=== PATIENT | male | born 1975 | race Caucasian/White ===

== ENCOUNTER 2016-12-04 05:01 | Emergency (ER) | payer SELFPAY ==
[2016-12-04] MEDS ORDERED: Ibuprofen 800 MG TAB ONE (05:33)
== END 2016-12-04 05:41 | disposition home or self-care (01) ==
LOC: BURERS 05:01
DX: M26.601 Right temporomandibular joint disorder, unspecified (principal); E10.9 Type 1 diabetes mellitus without complications; F17.210 Nicotine dependence, cigarettes, uncomplicated; Z79.899 Other long term (current) drug therapy
CPT/HCPCS: 99283

== ENCOUNTER 2020-07-30 14:25 | Emergency (ER) | payer SELFPAY ==
[2020-07-30 15:26] LABS: Mean Corpuscular Hemoglobin 29.4 pg (27.0-31.0); Mean Platelet Volume 9.2 fL (7.4-10.4); Platelet Count 265 thou/uL (130-400); RBC Distribution Width 12.7 % (11.5-14.5); White Blood Cell (WBC) Count 11.8 thou/uL (4.8-10.8)
[2020-07-30 15:41] LABS: ALT (SGPT) 162 U/L (8-55); AST (SGOT) 120 U/L (5-34); Albumin 4.4 g/dL (3.5-5.0); Alkaline Phosphatase 211 U/L (40-110); Anion Gap 18 mmol/L (10-20); BUN (Urea Nitrogen) 11 mg/dL (8.9-20.6); Bilirubin, Total 0.7 mg/dL (0.2-1.2); Calc. Creatinine Clearance 0 mL/min (70-130); Calcium 9.6 mg/dL (7.8-10.44); Carbon Dioxide 24 mmol/L (22-29); Chloride 101 mmol/L (98-107); Estimated GFR-MDRD 65; Glucose 162 mg/dL (70-105); Protein, Total 7.4 g/dL (6.0-8.3); Sodium 139 mmol/L (136-145)
[2020-07-30 15:42] LABS: #Basophils 0.1 thou/uL (0.0-0.2); #Lymphocytes 2.3 thou/uL (1.20-3.40); #Monocytes 0.7 thou/uL (0.11-0.59); #Neutrophils 8.7 thou/uL (1.40-6.50); %Basophils 0.9 % (0.0-1.0); %Eosinophils 0.3 % (0.0-10.0); %Lymphocytes 19.3 % (21.0-51.0); %Monocytes 6.1 % (0.0-10.0); %Neutrophils 73.5 % (42.0-75.0); Hypochromia SLIGHT = 6-15 cells (100X) (0-5/hpf); MDiff Complete? YES
[2020-07-30 15:55] LABS: Bilirubin Small (Negative); Blood, Urine Negative (Negative); Clarity Clear (Clear); Glucose, Urine (Dipstick) Negative (Negative); Ketone, Urine 15 mg/dL (Negative); Leukocyte Negative (Negative); Nitrite Negative (Negative); Protein, Urine (Dipstick) 30 mg/dL (Neg-Trace); Urobilinogen 0.2 mg/dL (Less than 2)
[2020-07-30 15:58] LABS: Bacteria/HPF Rare-Few HPF (None Seen); Mucous/LPF 1+ LPF (<2+); RBC/HPF None Seen HPF (0-3); Squamous Epithelial None Seen HPF (0-3); WBC/HPF None Seen HPF (0-3)
[2020-07-30 16:00] LABS: Lipase Less than 4 U/L (8-78)
--- NOTE | 2020-07-30 16:45 | RAD ---
PORTABLE CHEST: 07/30/20 An AP portable film at 1501 is compared with a 05/03/14 study. The heart is normal in size. There is no vascular congestion, edema or pleural effusion. No major lob ar infiltrate was seen. Minimal accentuation of a view of the right basilar lung markings is thought to be due to positioning rather than an acute infiltrate. IMPRESSION: No definite acute findings. POS: HOME
[2020-07-30 17:58] LABS: Troponin I Less than 0.010 ng/mL (< 0.028)
--- NOTE | 2020-07-30 20:07 | CT ---
CT ABDOMEN AND PELVIS WITH CONTRAST: 07/30/20 The lung bases are clear. The liver was unremarkable in size and appearance. The spleen, pancreas, ad renal glands and kidneys were unremarkable. The gallbladder is 8.7 cm long but no wall thickening or stone were seen. The aorta is normal in appearance. The bowel appears normal. There is no sign of inflammatory change or wall thickening. The appendix ap pears normal. No free air or free fluid was present. CT of the pelvis showed no pelvic masses, fluid collections, or inflammatory changes. IMPRESSION: No acute abdominal or pelvic findings. No specific hepatic abnormality seen. Gallbladder generous in size but otherwise appears normal. Preliminary report called to Dr. Mcnulty at 1651 on 07/30/20. POS: HOME
[2020-07-30 22:52] LABS: HBCM Index 0.05 S/CO (0-0.79); HBSAg Index 0.13 S/CO (0-0.99); Hep A IgM AB Non-Reactive (NonReactive); Hep A IgM S/CO 0.14 S/CO (0-0.79); Hep B Surf Ag Non-Reactive S/CO (NonReactive); Hep C IgG Ab Non-Reactive (NonReactive); Hep C Index 0.08 S/CO (0-0.79); Hepatitis B Core IgM Abs Non-Reactive (NonReactive)
[2020-07-31 16:08] LABS: SARS-CoV-2 MS2 Positive; SARS-CoV-2 N Gene Negative; SARS-CoV-2 S Gene Negative; SARS-CoV-2 by NAA Not Detected (NotDetected); SARS-CoV-2 orf1ab Negative
== END 2020-07-30 19:00 | disposition home or self-care (01) ==
LOC: BURERS 14:25
DX: J06.9 Acute upper respiratory infection, unspecified (principal); R74.8 Abnormal levels of other serum enzymes; E11.40 Type 2 diabetes mellitus with diabetic neuropathy, unspecified; F17.210 Nicotine dependence, cigarettes, uncomplicated; Z79.899 Other long term (current) drug therapy; Z79.4 Long term (current) use of insulin; Z20.828 Contact with and (suspected) exposure to other viral communicable diseases
CPT/HCPCS: 36415; 71045; 74177; 80053; 80074; 81003; 81015; 83605; 83690; 84443; 84484; 85025; 87040; 87635; 87804; 93005; 94760; U0003